=== PATIENT | male | born 1955 | race Caucasian/White ===

== ENCOUNTER 2025-01-19 13:21 | Emergency (ER) | payer MEDICARE, BC ==
[~2025-01-19] VITALS: Ht 182.9 cm; Wt 81.6 kg
[2025-01-19 13:55] VITALS: BP 115/66
[2025-01-19] MEDS ORDERED: LIDOcaine HCl 1% (Local Anesth.) 20 ML VIAL STI ONE (14:00)
[2025-01-19 14:15] VITALS: BP 118/64
[2025-01-19] MEDS ORDERED: BACTRIM DS1 TAB PO ×2 (14:26→14:41)
[2025-01-19 14:30] VITALS: BP 120/73
== END 2025-01-19 14:55 | disposition home or self-care (01) ==
LOC: ED 13:21
PROC: 0H93XZZ Drainage of Left Ear Skin, External Approach (ICD-10-PCS; principal; 2025-01-19)
DX: H60.02 Abscess of left external ear (principal)